=== PATIENT | male | born 1995 | race Caucasian/White ===

== ENCOUNTER 2021-11-06 22:32 | Inpatient (IN) | payer OTHER, SELFPAY ==
[2021-11-06 22:31] VITALS: BP 99/61; PULSE 128; RESP 20; TEMP 36.8; O2SAT 98; BMI 18.2
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
[2021-11-06 22:57] VITALS: BP 112/70; PULSE 123; RESP 24; O2SAT 100
[2021-11-06 23:02] LABS: Basophils # 0.1 10^3/uL (0.0-0.1); Basophils % 0.3 %; Hematocrit 36.8 % (42.0-52.0); Hemoglobin 12.9 g/dL (11.7-16.6); Lymphocytes # 1.4 10^3/uL (0.8-4.8); Lymphocytes % 3.1 %; Mean Corpuscular HGB Conc 35.1 g/dL (30.0-36.0); Mean Corpuscular Hemoglobin 31.2 pg (28.0-34.0); Mean Corpuscular Volume 89.1 fl (80-94); Mean Platelet Volume 10.7 fL (7.4-10.4); Monocytes # 4.1 10^3/uL (0.2-0.9); Monocytes % 9.2 %; Neutrophils # 37.78 10^3/uL (1.8-7.7); Neutrophils % 85.3 %; Nucleated Red Blood Cells % 0 %; Platelet Count 214 10^3/cmm (130-400); Red Blood Count 4.13 10^6/uL (4.1-5.3); Red Cell Distribution Width 11.9 % (12.1-15.1)
[2021-11-06 23:12] VITALS: BP 96/67; PULSE 119; RESP 20; O2SAT 100
[2021-11-06 23:14] LABS: White Blood Count 44.3 10^3/uL (4.0-10.0)
--- NOTE | 2021-11-06 23:21 | ECG_ITS ---
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 Measurements Intervals [place] Rate: 111 P: 85 AR: 132 QRS: 93 QRSD: 68 T: 82 QT: 297 QTc: 405 Interpretive Statements SINUS TACHYCARDIA POSSIBLE LEFT ATRIAL ENLARGEMENT [-0.1mV P-WAVE IN V1/V2] BORDERLINE RIGHT AXIS DEVIATION [QRS AXIS > 90] MINIMAL ST DEPRESSION [0.025+ mV ST DEPRESSION] ABNORMAL RHYTHM ECG No previous ECG available for comparison Electronically Signed On 11-07-2021 22:30:23 CDT by Michael Mccormick M.D. [id number]
[2021-11-06 23:30] VITALS: BP 108/77; PULSE 113; RESP 20; O2SAT 100
[2021-11-06] MEDS: ceFAZolin 1,000 MG in sodium chloride 0.9% (plus) 50 ML 100 MG IV (23:54)
[2021-11-06] MEDS: sodium chloride 0.9% 1,000 ML 999 ML IV (23:55)
[2021-11-07] VITALS (19 sets, daily range): BP systolic 101–157; BP diastolic 54–89; PULSE 0–105; RESP 10–19; TEMP 36.8–37.2; O2SAT 95–100
[2021-11-07 01:15] LABS: Alanine Aminotransferase 13 U/L (0-41); Alkaline Phosphatase 52 IU/L (40-130); Anion Gap 21.6 (5-19); Aspartate Amino Transferase 16 U/L (0-40); Blood Urea Nitrogen 25 mg/dL (6-20); Calcium 8.1 mg/dL (8.5-10.5); Carbon Dioxide 17 mmol/L (22-29); Chloride 105 mmol/L (98-107); Globulin 1.8 g/dL (1.3-4.6); Glomerular Filtration Rate 45.2 mL/min (90-130); Glucose 122 mg/dL (65-115); Osmolality Calculated 294 mOsm/kg (285-295); Potassium 4.6 mmol/L (3.5-5.1); Sodium 139 mmol/L (136-145); Total Bilirubin 0.8 mg/dL (0.15-1.2); Total Protein 5.8 g/dL (6.6-8.7)
[2021-11-07 01:16] LABS: Acetaminophen < 5.0 ug/mL (10-30); Salicylate < 0.3 mg/dL (3-10); Troponin(5th) Baseline 83 ng/L (0-15)
[2021-11-07 01:25] LABS: INR 1.64 (0.8-1.2)
[2021-11-07] MEDS: sodium chloride 0.9% 1,000 ML 999 ML IV ×2 (01:32→17:07)
--- NOTE | 2021-11-07 01:34 | ECG_ITS ---
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 Measurements Intervals [place] Rate: 96 P: 81 SD: 112 QRS: 91 QRSD: 78 T: 81 QT: 333 QTc: 423 Interpretive Statements SINUS RHYTHM WITH SHORT SD INTERVAL BORDERLINE RIGHT AXIS DEVIATION [QRS AXIS > 90] Compared to ECG 11/06/2021 23:54:49 Short SD interval now present Sinus tachycardia no longer present ST (T wave) deviation no longer present Electronically Signed On 11-07-2021 22:33:29 CDT by Michael Mccormick M.D. [id number]
[2021-11-07 01:39] LABS: Add Urine Culture? No; Add Urine Microscopic? YES; Bacteria Urine TRACE /hpf; Bilirubin Urine Neg (Negative); Blood Urine 2+ (Negative); Glucose Urine UA Norm (Normal); Hyaline Casts Urine 0-4 /lpf; Ketones Urine Negative (Negative); Leukocyte Esterase Urine Negative (Negative); Mucus Urine TRACE /hpf; Nitrate Urine Negative (Negative); Protein Urine Neg (Negative); RBC Urine 0-4 /hpf (0-2); Specific Gravity, Urine 1.025 (1.005-1.030); Squamous Epithelial Cell Urine 0-4 /hpf (0-5); Urine Appearance Clear (CLEAR); Urine Color Yellow (Yellow); Urobilinogen Urine Norm (Negative); WBC Urine 0-4 /hpf (0-5); pH Urine 5 (5-7)
[2021-11-07 01:43] LABS: Amphetamines Screen Urine Negative (Negative); Barbiturates Screen Urine Negative (Negative); Benzodiazepines Screen Urine Negative (Negative); Cocaine Screen Urine Negative (Negative); Opiate Screen Urine Negative (Negative); PCP Screen Urine Negative (Negative); THC Screen Urine Negative (Negative)
[2021-11-07 01:45] LABS: Creatine Phosphokinase 80 U/L (39-308)
[2021-11-07 03:11] LABS: Basophils % 0.2 %; Hematocrit 32.1 % (42.0-52.0); Hemoglobin 11.4 g/dL (11.7-16.6); Lymphocytes # 1.2 10^3/uL (0.8-4.8); Lymphocytes % 4.7 %; Mean Corpuscular HGB Conc 35.5 g/dL (30.0-36.0); Mean Corpuscular Hemoglobin 31.1 pg (28.0-34.0); Mean Corpuscular Volume 87.7 fl (80-94); Monocytes # 1.6 10^3/uL (0.2-0.9); Monocytes % 6.1 %; Neutrophils # 23.47 10^3/uL (1.8-7.7); Neutrophils % 88.4 %; Nucleated Red Blood Cells % 0 %; Platelet Count 138 10^3/cmm (130-400); Red Blood Count 3.66 10^6/uL (4.1-5.3); Red Cell Distribution Width 11.9 % (12.1-15.1); White Blood Count 26.5 10^3/uL (4.0-10.0)
[2021-11-07 03:57] LABS: Troponin 5 2HR 132.5 ng/L (0-15); Troponin 5 2HR Delta 49.5 ABS# (0-10)
--- NOTE | 2021-11-07 04:21 | P.HP_ITS ---
Providers/Chief Complaint Admitting Physician: Chuck Gandara MD Chief Complaint: SI/MULTIPLE STABS History of Present Illness Mahdi Lake is a 26 year old male with past medical history of pulmonary embolism on Eliquis Was brought in with chief complaint of active suicidal ideation with attempted self-injury, he tried to kill himself by attempting multiple slit injuries, there are multiple slit injuries to his ankles his left arm right arm, there was also concern for radial artery injury at , in the left but likely its venous injury. for which EMS gave 1 unit blood in route. Patient is having ongoing chest pain for the last 6 months after he was diagnosed with PE and since he was not able to take the chronic chest pain anymore he decided to end his life. Upon arrival in the ER: Pertinent imaging studies: X-ray chest EKG: Sinus tachycardia Pertinent labs done showed: WBC: 46T--> 26 , H&H:, PLT : 138 , serum sodium 139 serum potassium 4.6, serum bicarb 17 BUN 25 serum creatinine 1.8 , PT/INR:19/1.6 Troponin: 83-132 Urine tox: Negative, Review of Systems General: Reports: 10 or more systems reviewed and unremarkable except in HPI and below Narrative: 66-year-old currently not in acute distress being admitted for chest pain evaluation Const: Denies: fever(s), chills, body aches, change in appetite or diaphoresis Card: Denies: palpitations, edema, swelling of feet/ankles, dyspnea on exertion, orthopnea or leg pain with exertion Resp: Denies: dyspnea, productive cough, wheezing or pain on inspiration GI: Denies: abdominal pain, nausea, vomiting, diarrhea or constipation : Denies: flank pain or difficulty urinating Musc: Denies: back pain, extremity pain or extremity swelling Neuro: Denies: headache(s), difficulty walking or confusion Medications/Allergies Home Medications Medication Instructions Recorded Confirmed Last Taken Type rivaroxaban 20 mg tablet (Xarelto) 20 mg PO DAILY 11/07/21 11/07/21 Unknown History Allergies Allergy/AdvReac Type Severity Reaction Status Date / Time No Known Allergies Allergy Verified 11/06/21 23:46 Vitals/I&O/Wt Last Vital Signs Temp 98.2 F 11/06/21 22:31 Pulse 105 H 11/07/21 04:00 Resp 18 11/07/21 04:00 BP 125/89 11/07/21 04:00 Pulse Ox 100 11/07/21 04:00 11/06/21 11/06/21 11/07/21 14:59 22:59 06:59 Intake Total 2049 Balance 2049 Weight last 48 hrs Weight 68.039 kg Physical Exam Const: COMMON NORMALS: patient oriented x3 HENMT: COMMON NORMALS: normocephalic and atraumatic HEAD & SCALP: normocephalic and atraumatic EXTERNAL EAR: Yes external ears normal Eye: COMMON NORMALS: no scleral icterus GENERAL EYE: appearance normal, both eyes and all related structures Chest: COMMONS NORMALS: normal inspection of the chest and normal palpation of entire chest wall CHEST: Yes Symmetrical chest wall rise Resp: COMMON NORMALS: normal respiratory effort, No retractions, No use of accessory muscles and clear to auscultation bilaterally EFFORT & INSPECTION: Yes symmetric chest movement AUSCULTATION: clear to auscultation bilaterally Cardio: COMMON NORMALS: regular rate, regular rhythm, S1 normal heart sound present, S2 normal heart sound present, No gallops present (Cardio), No murmurs present (Cardio), No rub (Cardio) and Peripheral pulses 2+ throughout RATE: regular rate RHYTHM: regular rhythm HEART SOUNDS: S1 normal heart sound present and S2 normal heart sound present PERIPHERAL PULSES: Peripheral pulses 2+ throughout GI: COMMON NORMALS: Normal to inspection, nondistended, normoactive bowel sounds present, Soft to palpation, non-tender, No hepatosplenomegaly present and no masses AUSCULTATION: Yes normoactive bowel sounds PALPATION: Yes Soft to palpation and Yes No hepatosplenomegaly present RECTAL EXAM: Yes deferred Extremity: COMMON NORMALS: no clubbing, cyanosis or edema and no pedal edema Neuro: COMMON NORMALS: patient oriented x3 Data : 11/07/21 07:11 11/07/21 00:20 A&P Assessment and plan (1) NSTEMI (non-ST elevated myocardial infarction): Status: Acute (2) Leukocytosis: Status: Acute (3) Pulmonary embolism: Status: Acute (4) Acute kidney injury superimposed on CKD: Status: Acute (5) Suicidal behavior with attempted self-injury: Status: Acute Plan 26 year old male with past medical history of pulmonary embolism on Eliquis Was brought in with chief complaint of active suicidal ideation with attempted self-injury, he tried to kill himself by attempting multiple slit injuries, there are multiple slit injuries to his ankles his left arm right arm, there was also concern for radial artery injury at , in the left but likely its venous injury. for which EMS gave 1 unit blood in route. Patient is having ongoing chest pain for the last 6 months after he was diagnosed with PE. Assessment: NSTEMI Leukocytosis History of pulmonary embolism Active suicidal ideation RAJAT versus RAJAT on CKD Plan: Follow 2D echo follow lower extremity doppler vein 6 hours troponin Telemetry monitoring Monitor EKG Therapeutic Lovenox Follow blood culture Urine culture Lactic acid Procalcitonin We will hold off on antibiotics for now Continue IV hydration Monitor BMP Monitor intake output charting Avoid nephrotoxic's Patient has refused Imaging studies Psychiatry has been consulted by ER CODE STATUS: Full code DVT PPX : ON LOVENOX Attestations Medical Necessity Statement*: Patient is still in hospital for management of NSTEMI, attempted suicide. Anticipated length of stay greater than 2 midnights. Time Spent in Patient Care: Greater than 35 minutes (>than 50% of time spent in counselling and/or direct pt care on unit) . Coding Level of Care Code Acute Multi Operation Machine Operator for Chg Fwd Exam Comprehensive Diagnoses NSTEMI (non-ST elevated myocardial infarction) I21.4 Leukocytosis D72.829 Pulmonary embolism I26.99 Acute kidney injury superimposed on CKD N17.9; N18.9 Suicidal behavior with attempted self-injury T14.91XA
--- NOTE | 2021-11-07 04:38 | PC.NURSE ---
Per Dr. Gandara patient can go to med surg for med tele monitoring.
[2021-11-07 04:43] LABS: NT Pro B Type Natriuretic Pept 90 pg/mL (0-125)
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
[2021-11-07] MEDS: sodium chloride 0.9% 1,000 ML 125 ML IV ×3 (05:02→19:21)
[2021-11-07] MEDS: enoxaparin 80 mg/0.8 mL Syringe 70 MG SUBCUT ×2 (05:03→19:21)
[2021-11-07] MEDS: oxyCODONE-APAP 5-325 mg Tablet 1 TAB PO ×2 (05:08→22:02)
--- NOTE | 2021-11-07 05:34 | ECG_ITS ---
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 Measurements Intervals [place] Rate: 100 P: 83 VT: 115 QRS: 91 QRSD: 73 T: 89 QT: 324 QTc: 420 Interpretive Statements SINUS TACHYCARDIA WITH SHORT VT INTERVAL BORDERLINE RIGHT AXIS DEVIATION [QRS AXIS > 90] Compared to ECG 11/07/2021 01:35:03 Sinus rhythm no longer present Electronically Signed On 11-07-2021 22:33:25 CDT by Michael Mccormick M.D. [id number]
--- NOTE | 2021-11-07 07:06 | USCV_ITS ---
Mahdi Aleksandra Age: 26 Gender: M : 1995 Exam Date: 11/07/2021 09:12 Ordering Phys: Jared Granado MD Technologist: DANNI Exam Location: [facility] Indication: Chest pain, pulmonary embolism BP: 126 / 61 HR: 97 Rhythm: Sinus Technical Quality: Adequate MEASUREMENTS (Male / Female) Normal Values 2D ECHO LV Diastolic Diameter PLAX 4.3 cm 4.2 - 5.9 / 3.9 - 5.3 cm LV Systolic Diameter PLAX 2.6 cm IVS Diastolic Thickness 0.9 cm 0.6 - 1.0 / 0.6 - 0.9 cm IVS Systolic Thickness 1.3 cm LVPW Diastolic Thickness 1.1 cm 0.6 - 1.0 / 0.6 - 0.9 cm LVPW Systolic Thickness 1.4 cm LVOT Diameter 2.0 cm LV Ejection Fraction 2D Teich 69.6 % LV Ejection Fraction MOD 2C 76.5 % LV Ejection Fraction 2C AL 75.6 % LA Diameter 1.6 cm Aorta at Sinotubular Diameter 2.1 cm IVC Diameter 1.3 cm M-MODE Aortic Annulus Diameter 3.3 cm LA Ao Ratio MM 0.5 MV E Point Septal Separation 0.9 cm DOPPLER AV Peak Velocity 130.0 cm/s LVOT Peak Velocity 106.0 cm/s AV Area Cont Eq vti 2.9 cm squared AV Area Cont Eq pk 2.6 cm squared MV Area PHT 3.7 cm squared Mitral E to A Ratio 1.3 MV E' Velocity 75.0 cm/s Right Atrial Pressure 3.0 mmHg PV Peak Velocity 106.0 cm/s RV Acceleration Time 0.1 s RV Ejection Time 0.3 s RV AcT/ET 0.4 FINDINGS Left Ventricle Normal left ventricular size, systolic function and wall thickness, with no regional wall motion abnormalities. Left ventricular ejection fraction is estimated at 70 %. Right Ventricle Normal right ventricular size and systolic function. RVSP could not be calculated due to incomplete tricuspid regurgitation velocity profile. Right Atrium Normal right atrial size. Left Atrium Normal left atrial size. Mitral Valve Structurally normal mitral valve. No mitral valve stenosis. Trace mitral valve regurgitation. Aortic Valve Probably trileaflet aortic valve. No aortic valve stenosis. No aortic valve regurgitation. Tricuspid Valve Structurally normal tricuspid valve. No significant tricuspid valve regurgitation. Pulmonic Valve Structurally normal pulmonic valve. No pulmonary valve stenosis. Pericardium No pericardial effusion. Aorta Normal size aortic root and proximal ascending aorta. IVC Normal IVC dimension with >50% respiratory change of the inferior vena cava. CONCLUSIONS 1. Normal left ventricular size, systolic function and wall thickness, with no regional wall motion abnormalities. Left ventricular ejection fraction is estimated at 70 %. 2. No significant valve abnormalities. 3. There is no pericardial effusion. 4. There are no prior echocardiogram studies to compare. Joelle Weaver MD (Electronically Signed) Final Date: 07 November 2021 16:39 S
[2021-11-07 07:36] LABS: Basophils % 0.2 %; Hematocrit 28.4 % (42.0-52.0); Hemoglobin 10.1 g/dL (11.7-16.6); Lymphocytes # 2.7 10^3/uL (0.8-4.8); Lymphocytes % 11.3 %; Mean Corpuscular HGB Conc 35.6 g/dL (30.0-36.0); Mean Corpuscular Hemoglobin 31.2 pg (28.0-34.0); Mean Corpuscular Volume 87.7 fl (80-94); Monocytes # 2.3 10^3/uL (0.2-0.9); Monocytes % 9.5 %; Neutrophils # 18.97 10^3/uL (1.8-7.7); Neutrophils % 78.5 %; Nucleated Red Blood Cells % 0 %; Platelet Count 162 10^3/cmm (130-400); Red Blood Count 3.24 10^6/uL (4.1-5.3); Red Cell Distribution Width 11.8 % (12.1-15.1); White Blood Count 24.2 10^3/uL (4.0-10.0)
[2021-11-07 08:22] LABS: Troponin 5 6HR 143.7 ng/L (0-15); Troponin 5 6HR Delta 60.7 ng/L (0-12)
[2021-11-07 08:50] LABS: Lactate (Lactic Acid level) 1.4 mmol/L (0.5-2.2)
[2021-11-07 09:01] LABS: Ketone (Acetest) Serum Negative (Negative)
--- NOTE | 2021-11-07 10:30 | PC.CHAP ---
Pastoral Care Encounter/Spiritual Assessment Type of Contact [] Declined new accounts banking representative visit [] Patient/Family/Request visit [] Outpatient visit [] Follow-up visit [] Physician referral [] Code/Alert [x] Routine visit [] Staff referral [] Actively dying [] Patient sleeping [] Family support [] [] Out of room [] Palliative care [] [x] Receiving care in room [] Pre-surgical visit [] Trauma [] Long length of stay [] ICU visit [x] Other: with staff Relational/Emotional Strength [] Patient feels connected with others/family/visitors/staff [] Distress [] Loneliness/isolation [] Abandonment Spirituality of Patient [] Person of Marisol [] Attends Alevism of their Marisol [] Believes in Prayer [] Reads Bible or Worship materials [] There are Spiritual issues to be addressed Die Trimmer Interventions [] Prayer [] Active listening [] Non-anxious presence [] Spiritual/emotional support [] Crisis/trauma care [] Spiritual counseling [] Bereavement support [] Provided bereavement packet [] Provided Bible/devotional materials [] Provided toy/stuffed animal, coloring book to patient or family member [] Provided Communion [] Anointing/Campus [] Salvation [] Completed spiritual assessment [] Other: Impact on Illness or Injury [] Angry [] Fearful [] Anxious [] Often cries [] Exhaustion [] Unable to work [] Unable to attend baptist [] Unable to walk/stand [] Unable to read [] Unable to drive [] Unable to eat/drink [] Unable to sleep [] Unable to be with family [] Patient intubated [] Other: Summary with staff Time spent with patient 5 mins
--- NOTE | 2021-11-07 11:44 | P.MISC_ITS ---
Miscellaneous Note Purpose of Documentation: Mini progress note Note: Patient was admitted this morning. He was seen today. I had an extensive conversation with him. Patient states that he has had all the work-up done for his PE in the past and at the end he was told that it was unprovoked. He may have a slight deficiency of protein C however he was on Eliquis at the time he was tested. He says he will be going back to follow-up for further studies. He states he is from [place] and will be going back there for further work-up and testing. He is very adamantly refusing to have any imaging study done at our hospital. He believes he does not need them and since his body is in stress and that is why his cardiac enzymes were elevated and WBC count is high and that is also the reason for the rest of his lab abnormalities. He is also refusing to have further blood drawn to check for routine labs. He is only okay with having IV fluids and possibly vitamins in the IV fluids. He states his partner will be coming here shortly as she is driving over from [place] as we speak. At this time he is not interested in any further work-up. He believes that after his 96-hour hold he will be able to be discharged and go back to [place] and see his doctors there. He says he actively tried to commit suicide. He says he went into the [facility] and [place] used a razor blade for his multiple self- inflicted wounds on his lower extremities and upper extremities. He states the plan was to cut the artery and bleed out to however after bleeding for a little bit the blood flow stopped so he figured this was venous bleed. He states that he ended up coming into the hospital because if he did not off of this he was going to be miserable. His plan however is to . He also states that he lost over a liter of blood while his hike up back to his car. He was apparently driving from [place] to [place] and later when we asked he said no he was driving from [place] back to [place]. Unsure how he ended up in [place]. He does not live here. Patient did not offer any more information. 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 Regarding his chest pain he states it comes and goes and has been going on for the last 6 months and it was also there prior to him having the pulmonary embolism. He states it is not related to his breathing and sometimes is on the right side of his chest and sometimes on the left side of his chest. He has never had a cardiac work-up done before. I discussed with him the possibility of having a stress test. At this time however patient is refusing any blood work and would like to wait till tomorrow morning to have any more blood drawn. He also states that he will let us only check once more and then on the day of discharge to ensure things are heading in the right direction. Patient is not a smoker, BMI 18, no illicit drug use. Not diabetic. Patient is currently on a one-to-one sitter. #Suicide attempt, slit wrists #Elevated troponins most likely demand ischemia due to active blood loss, type II IN #High anion gap metabolic acidosis #Leukocytosis 24,000 #History of pulmonary embolism and DVT, unprovoked #IVC filter in place #RAJAT ? Patient will need evaluation by psychiatrist prior to discharge. He is a 96- hour hold. ? Continue one-to-one sitter ? Elevated troponins are most likely demand ischemia due to active blood loss. I will discuss with cardiology if stress test would be warranted in this case ? Most likely dehydration acute blood loss anemia caused his high anion gap metabolic acidosis. He did endorse not eating much for the last few days. Unfortunately he is not allowing for further blood draws ? Leukocytosis 44,000 on admission 24,000 this morning. Most likely due to stress response. I will recheck tomorrow morning as patient is refusing to have any more blood drawn today. ? He is currently on normal saline 125 cc/h. I will continue that and give him a normal saline bolus. ? I will give thiamine as well. Continue on regular diet ? Patient is refusing any kind of imaging studies whether it be x-ray or CT scan. Unsure if he has ingested anything as well and that might be the reason for refusal. Unable to give me a reason other than he thinks they are not warranted at this time. ? We will keep in observation for now. -Consult psychiatry. Will discuss with Dr. Obrien. Full code On 96-hour hold.
--- NOTE | 2021-11-07 13:40 | P.NPUHP_ITS ---
Providers/Chief Complaint Admitting Physician: Chuck Gandara MD Chief Complaint: SI/MULTIPLE STABS HPI NPU History of Present Illness Mahdi Lkae is a 26 year old male who presented to the emergency department w ith the following report: Chief Complaint: Psychiatric Symptoms Stated Complaint: SI/MULTIPLE STABS Time Seen by Provider: 11/06/21 22:46 Source: patient and EMS Mode of arrival: EMS Limitations: no limitations History of Present Illness: 26-year-old male that states that he had been suicidal today. He is found out in the [place] and tried to stab himself multiple times. He states that he was diagnosed with a PE 6 months ago has had chest pain since then he states he no longer want to deal with it. He has multiple lacerations to his ankles and his left arm and right arm. He had had a venous bleed to his left arm EMS gave him 1 unit of blood in route his vital signs here are normal currently. He denies any chest pain currently states he has been severely depressed though. Associated symptoms: Reports depression and suicidal ideation. He was admitted to the [facility] department for definitive treatment of those issues. A psychiatric consult was requested secondary to his significant psychiatric concerns. He presents today reporting he does not have any known allergies to medications and is not currently taking any psychiatric medications at the moment though he was on Remeron for anxiety with eating though he reports it wasn?t effective. 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 He presents to the emergency department due to self-injurious behaviors of cutting himself. He reports he was planning to commit suicide and had gone into the [place] to cut his arteries but realized he couldn?t find them and didn?t want to pass out in the [place] so he hiked up to wave down a car who called 911. He reports he has never been psychiatrically hospitalized and reports he has a psychiatrist in [place] who he sees virtually. He reports he has not been on any other medications for psychiatric reasons. He reports he smoked cigarettes over 7 years ago but denies currently, alcohol socially, marijuana socially, and denies any other illicit drug use. He has never been to drug and alcohol treatment and has never had drug and alcohol related charges. He endorses his mental health issues began presenting with his eating phobia where he would get anxiety around eating which comes and goes with no clear discernible cause. He reports feeling nausea and had stopped eating for a period of time but has had to start eating again which has increased the issue. He reports he has had issues with eating since he was younger but endorses that it wasn?t as much of a problem back then that he required help for it. He reports having chronic chest pains which he has now accepted as normal. He endorses having the ?normal amount? of suicidal thoughts but denies other suicide attempts besides his recent attempt. He reports that he began having acute pain around February/March of 2021 after which he was diagnosed with PE in April and has been adjusting to the chronic chest pain which he went to the ER multiple times for. He endorses the chest pain has been decreasing over the past couple of weeks but recently started spiking again. He endorses the pain worsening hit a threshold where he reports he thought ?this is the end? and went to the [place] so he ?would not be found easily?. He reports his mother had problems with eating due to having problems with physically eating and he would watch her be in pain and having issues with eating which he believes has affected him. Psychiatric History: As above. Substance Abuse History: As above Family History: He denies any mental health and addiction issues on either side of the family, and denies any known suicide attempts or completions. Developmental History: He denies any issues with or , was delayed in talking and had issues with completing his sentences until he was 4 years old, and denies any need for learning support, emotional support or special education classes. Psychosocial History: His parents were together when he was born until his father passed from a stroke when he was 16/17 years old. He has 9 siblings, some of whom are half siblings from his father. He described his childhood as always running and going around. He reports he came from a poor family and had to support himself financially from an early age. He denies any sexual, emotional or physical abuse. He denies any other traumatic events in his life. He moved to the when he was 21 years old from [facility] for school. He graduated from high school and college for software engineering as well as grad school for psychology where he got his PhD in neuroscience. He endorses being heterosexual with his longest relationship being around 4 years. He is currently , does not have children, has never been in the and denies a anglican belief system. 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 He currently lives in an apartment with his spouse and 2 roommates. Legal History: Denied. Medical History: He had a pulmonary embolism. Meds NPU Home Medications Medication Instructions Recorded Confirmed Last Taken Type rivaroxaban 20 mg tablet (Xarelto) 20 mg PO DAILY 11/07/21 11/07/21 Unknown History Allergies Allergy/AdvReac Type Severity Reaction Status Date / Time No Known Allergies Allergy Verified 11/06/21 23:46 Mental Status Exam MSE Comments: This is a slender [place] male with notable superficial lacerations over exposed skin in hospital scrubs with limited grooming and adequate eye contact. No abnormal movements except for psychomotor retardation. Mostly cooperative with exam in mild distress. Speech was decreased rate and volume. Mood described as great, affect is somewhat laissez-faire. Thought process, organized. Thought content: patient denies suicidal or homicidal ideation, no delusions reported or noted, and denies any auditory or visual hallucinations. Attention and concentration are intact and memory appeared reliable but none were formally tested. He is alert and oriented three times. Insight and judgment are fair. Impulse control is limited. Vitals/I&O/Wt Last Vital Signs Temp 98.2 F 11/07/21 11:56 Pulse 97 11/07/21 11:56 Resp 16 11/07/21 11:56 BP 116/55 11/07/21 11:56 Pulse Ox 98 11/07/21 11:56 11/06/21 11/07/21 11/07/21 22:59 06:59 14:59 Intake Total 2049 480 / 480 Output Total 1300 / 1300 Balance 2049 -820 / -820 Weight last 48 hrs Weight 68.039 kg Data NPU : 11/08/21 05:33 11/08/21 05:33 Micro: Microbiology 11/07/21 07:11 Blood Culture - Preliminary Blood SPECIMEN COLLECTED 11/07/21 07:11 Blood Culture - Preliminary Blood SPECIMEN COLLECTED Microbiology 11/07/21 07:11 Blood Blood Culture - Preliminary SPECIMEN COLLECTED 11/07/21 07:11 Blood Blood Culture - Preliminary SPECIMEN COLLECTED A&P Assessment and plan (1) Adjustment disorder with mixed disturbance of emotions and conduct: Status: Acute (2) Suicidal ideation: Status: Acute (3) Leukocytosis: Status: Acute (4) Multiple lacerations: Status: Acute (5) Elevated troponin: Status: Acute (6) Suicidal behavior with attempted self-injury: Status: Acute (7) Acute kidney injury superimposed on CKD: Status: Acute (8) Pulmonary embolism: Status: Acute (9) Leukocytosis: Status: Acute (10) NSTEMI (non-ST elevated myocardial infarction): Status: Acute (11) Depression: Status: Acute Plan This is a 26 year old [place] male with a recent history of pulmonary embolism which has resulted in chronic pain and mental health issues who presents after a recent suicide attempt endorsing he is doing well and is not currently exp eriencing suicidal ideation, wanting to be discharged. 1. Continue current medications. 2. Will get collateral information from his home medical treatment team to collaborate for the most effective treatment plan for the patient?s physical and mental health. 3. Continue one-to-one while in the hospital. 4. We will plan for transfer to neuropsychiatric unit after medically cleared. Patient will need psychiatric ongoing inpatient evaluation to evaluate and assess safety given clear suicide attempt. Attestations NPU Medical Necessity Statement*: N/A. Please see primary team note for medical necessity details. However given circumstances patient will need likely inpatient psychiatric assessment after medically cleared due to concerns for lethality Coding Level of Care Code Acute Rn Home Health for Melissa Vides Diagnoses Adjustment disorder with mixed disturbance of emotions and conduct F43.25 Suicidal ideation R45.851 Leukocytosis D72.829 Multiple lacerations T07.XXXA Elevated troponin R77.8 Suicidal behavior with attempted self-injury T14.91XA Acute kidney injury superimposed on CKD N17.9; N18.9 Pulmonary embolism I26.99 Leukocytosis D72.829 NSTEMI (non-ST elevated myocardial infarction) I21.4 Depression F32.A
--- NOTE | 2021-11-07 16:33 | PC.NURSE ---
Report called to BULMARO Hoffman in ICU. Patient to be transferred to ICU when a room becomes available.
--- NOTE | 2021-11-07 19:00 | PC.NURSE ---
Received patient from med surg via wheelchair, security and nurse at patients side. Patients reports that he is feeling much better and is not wanting to hurt himself at present time. Orders reviewed with patient and patient states that him and Dr. Lopez had discussed the CT or chest and the stress test order and he was not going to have it done while here because he has his normal doctors in [place] and has his routine follow up testing done there. No current discontinuation order noted will follow up with Dr. Lopez tomorrow. Sitter at bedside.
[2021-11-07 20:40] LABS: Glucose Point of Care 107 mg/dL (70-110)
[2021-11-08] VITALS (18 sets, daily range): BP systolic 88–128; BP diastolic 41–81; PULSE 67–110; RESP 12–22; TEMP 37.1; O2SAT 96–100; BMI 18.3
[2021-11-08] MEDS: sodium chloride 0.9% 1,000 ML 125 ML IV (02:33)
[2021-11-08 05:48] LABS: Basophils % 0.4 %; Eosinophils # 0.1 10^3/uL (0.0-0.8); Eosinophils % 0.7 %; Hematocrit 23.3 % (42.0-52.0); Hemoglobin 8.1 g/dL (11.7-16.6); Lymphocytes # 2.5 10^3/uL (0.8-4.8); Lymphocytes % 29.3 %; Mean Corpuscular HGB Conc 34.8 g/dL (30.0-36.0); Mean Corpuscular Hemoglobin 30.7 pg (28.0-34.0); Mean Corpuscular Volume 88.3 fl (80-94); Mean Platelet Volume 10.7 fL (7.4-10.4); Monocytes # 0.6 10^3/uL (0.2-0.9); Monocytes % 7.6 %; Neutrophils % 61.8 %; Nucleated Red Blood Cells % 0 %; Platelet Count 102 10^3/cmm (130-400); Red Blood Count 2.64 10^6/uL (4.1-5.3); Red Cell Distribution Width 11.9 % (12.1-15.1); White Blood Count 8.4 10^3/uL (4.0-10.0)
[2021-11-08 06:04] LABS: Alanine Aminotransferase 10 U/L (0-41); Albumin Level 3.1 g/dL (3.5-5.2); Alkaline Phosphatase 32 IU/L (40-130); Anion Gap 10.9 (5-19); Aspartate Amino Transferase 17 U/L (0-40); Blood Urea Nitrogen 9 mg/dL (6-20); Calcium 7.3 mg/dL (8.5-10.5); Carbon Dioxide 24 mmol/L (22-29); Chloride 113 mmol/L (98-107); Cholesterol 65 mg/dL (0-200); Globulin 1.6 g/dL (1.3-4.6); Glomerular Filtration Rate 115.1 mL/min (90-130); Glucose 77 mg/dL (65-115); HDL Cholesterol 21 mg/dL (60-100); LDL Cholesterol Calculated 30 mg/dL (50-129); LDL HDL Ratio 1.43 RATIO (0.00-3.22); Magnesium 1.7 mg/dL (1.7-2.3); Osmolality Calculated 295 mOsm/kg (285-295); Potassium 3.9 mmol/L (3.5-5.1); Sodium 144 mmol/L (136-145); Total Bilirubin 0.5 mg/dL (0.15-1.2); Total Protein 4.7 g/dL (6.6-8.7); Triglycerides 71 mg/dL (0-150)
[2021-11-08 06:10] LABS: Slide Review Slide Review Perform
--- NOTE | 2021-11-08 07:19 | SUR.PREOP ---
STRESS TEST Notified by nuclear medicine that patient is refusing the exam today. Test Cancelled per patient request. GLASS BEAD MAKER notified to report to ordering MD.
[2021-11-08] MEDS: enoxaparin 80 mg/0.8 mL Syringe 70 MG SUBCUT (10:05)
--- NOTE | 2021-11-08 10:20 | PC.NURSE ---
Telephone, Patient request to talk to spouse, was allowed to talk on the phone. No issues. Patient gave update on his care.
--- NOTE | 2021-11-08 10:33 | PC.CHAP ---
Pastoral Care Encounter/Spiritual Assessment Type of Contact [] Declined central office trouble shooter visit [] Patient/Family/Request visit [] Outpatient visit [] Follow-up visit [] Physician referral [] Code/Alert [x] Routine visit [] Staff referral [] Actively dying [] Patient sleeping [] Family support [] [] Out of room [] Palliative care [] [] Receiving care in room [] Pre-surgical visit [] Trauma [] Long length of stay [x] ICU visit [x] Other: sitter Relational/Emotional Strength [] Patient feels connected with others/family/visitors/staff [] Distress [] Loneliness/isolation [] Abandonment Spirituality of Patient [] Person of Marisol [] Attends Christianity of their Marisol [] Believes in Prayer [] Reads Bible or Mosque materials [] There are Spiritual issues to be addressed Professor Of Geology Interventions [] Prayer [x] Active listening [x] Non-anxious presence [] Spiritual/emotional support [] Crisis/trauma care [] Spiritual counseling [] Bereavement support [] Provided bereavement packet [] Provided Bible/devotional materials [] Provided toy/stuffed animal, coloring book to patient or family member [] Provided Communion [] Anointing/[place] [] Salvation [x] Completed spiritual assessment [] Other: Impact on Illness or Injury [] Angry [] Fearful [] Anxious [] Often cries [] Exhaustion [] Unable to work [] Unable to attend sabianism [] Unable to walk/stand [] Unable to read [] Unable to drive [] Unable to eat/drink [] Unable to sleep [] Unable to be with family [] Patient intubated [] Other: Summary spent time with patient discussing life in general... knowledge of difference beliefs... Time spent with patient 15 min
--- NOTE | 2021-11-08 14:44 | PC.NURSE ---
Patient visiting with in his room.
--- NOTE | 2021-11-08 14:47 | P.PN_ITS ---
Subjective Subjective: Seen this AM. Pt refused to go for stress test. He gave me his cardiolgists information Dr. Riley Pacheco who i discussed his care with. He will be faxing over pt records shortly. He states that patient presented to the hospital about 6 months ago with massive bilateral saddle pulmonary embolism with a right lower lobe pulmonary infarction. Patient received catheter directed thrombolysis and was subsequently placed on Xarelto. He also had hematological work-up done and there is mild protein C and protein S deficiency. His PE was deemed to be unprovoked by oncology and he was recommended indefinite lifelong anticoagulation. Patient also has an IVC filter because he does have chronic left-sided DVT. Filter was done in order to prevent an extensive DVT going into his lungs. Cardiology states that he is not worried about coronary artery disease in this patient as he has no risk factors. His troponin elevation is most likely secondary to demand ischemia from his acute blood loss. Patient does have a CT angiogram done recently in May which again showed chronic pulmonary embolism and right lower lobe with evidence of some infarction. His warehouse stocker believes his chronic chest pain is secondary to his PE. He says the patient was supposed to move to [place] and was not going to see Dr. Rothman again however he is happy to follow-up with the patient once he is back in [place]. Patient states he is not having any chest pain and it is very intermittent and its chronic pain. It is thought that the intensity has gone up but is the fact that the pain is chronic for him. He would not like to have any further testing done at this time. Vitals/I&O/Wt Last Vital Signs Temp 98.7 F 11/08/21 04:00 Pulse 100 11/08/21 12:00 Resp 14 11/08/21 12:00 BP 117/65 11/08/21 12:00 Pulse Ox 99 11/08/21 12:00 11/07/21 11/08/21 11/08/21 22:59 06:59 14:59 Intake Total 2288.333 / 3768.333 900 / 4668.333 1645.583 / 1645.583 Output Total 2400 / 3700 1675 / 5375 2800 / 2800 Balance -111.667 / 68.333 -775 / -706.667 -1154.417 / -1154.417 Weight last 48 hrs Weight 68.039 kg Physical Exam Narrative: General: Alert oriented x3, patient seen sitting up in bed appearing comfortable at this time, thin male, pleasant to talk to HEENT: Normocephalic, atraumatic, EOMI, breathing normally on room air Cardio: Slightly borderline tachycardic, normal S1-S2, no murmurs Respiratory: Good bilateral air entry, no wheezes no rhonchi appreciated GI: Abdomen soft, nontender, nondistended, bowel sounds + Extremities: no edema, no cyanosis, numerous areas of lacerations that are sutured up especially in radial and antecubital area. He has a lot of abrasions from being walking barefoot in the [place]. Data : 11/08/21 05:33 11/08/21 05:33 Micro: Microbiology 11/07/21 07:11 Blood Culture - Preliminary Blood NEGATIVE TO DATE 11/07/21 07:11 Blood Culture - Preliminary Blood NEGATIVE TO DATE A&P Assessment and plan (1) Depression: Status: Acute (2) Adjustment disorder with mixed disturbance of emotions and conduct: Status: Acute (3) Suicidal ideation: Status: Acute (4) Leukocytosis: Status: Acute (5) Multiple lacerations: Status: Acute (6) Elevated troponin: Status: Acute (7) Suicidal behavior with attempted self-injury: Status: Acute (8) Acute kidney injury superimposed on CKD: Status: Acute (9) Pulmonary embolism: Status: Acute (10) Leukocytosis: Status: Acute (11) NSTEMI (non-ST elevated myocardial infarction): Status: Acute Plan #Suicide attempt, slit wrists #Acute blood loss anemia from suicide attempt #Elevated troponins most likely demand ischemia due to active blood loss, type II OK #High anion gap metabolic acidosis?resolved #Leukocytosis 24,000 on admission?resolved #History of pulmonary embolism and DVT, unprovoked #IVC filter in place #RAJAT?resolved ? Patient will need evaluation by psychiatrist prior to discharge.? He is a 96- hour hold. ? Continue one-to-one sitter ? Elevated troponins are most likely demand ischemia due to active blood loss.? Patient's chest pain is most likely secondary to his chronic pulmonary embolism however cardiac cause cannot be ruled out. He was offered a stress test to which he refused. I have discussed with patient's warehouse stocker who will follow up with him after discharge when patient goes back to [place]. ? Labs have normalized. Stop IV fluids. ? Continue on regular diet. ? Patient is refusing any kind of imaging studies whether it be x-ray or CT scan.? Patient believes he does not need any testing at this time given his current situation. ? Dr. Obrien consulted on the patient. Once medically stable he will be transferred to n.p.o. -Patient's hemoglobin dropped to 8.1 this morning, platelets 106. I believe this is all from his acute blood loss due to his suicide attempt. Patient has agreed to have CBC checked every 12 hours. I will discuss with him if he will accept 1 unit of blood at this time. This may help with his symptomatic nature of his tachycardia. His hemoglobin from May was 13.1 as per warehouse stocker from [place] that I spoke to over the phone. Still awaiting records. Threshold to transfuse will be less than 7 however in my clinical judgment I believe patient would do well if we gave him a unit of blood at this time. I will discussed with patient. Full code On 96-hour hold. This will start once patient enters NPO. Attestations Medical Necessity Statement*: Expect 3 to 5-day hospital stay. Once medically stable will transfer to VISUAL MERCHANDISING COORDINATOR you. 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
--- NOTE | 2021-11-08 15:11 | W.PM.NPUPNS ---
Subjective NPU Subjective: Patient presents today reporting that he did get the visit with his today. He reports that he was very happy that she spent the time making sure he was okay and not being angry with him in relation to his suicide attempt. 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 We also discussed the plan and continued evaluation in relation to the 96-hour hold. We had a discussion about the possibility of initiation of medication in light of his anxiety pain continuing. We discussed the risk benefits and alternatives of considering Cymbalta and he understood agreed to continue a conversation regarding the medication. Otherwise he was pleased that the treatment team worked with his skin specialist back in [place] to make sure there was a more robust understanding of the situations and radiation exposures prior to this point and there was some procedures that he resisted secondary to concerns about exposure to radiation. Mental Status Exam MSE Comments: This is a slender Chinese male with notable superficial lacerations over exposed skin in hospital scrubs with limited grooming and adequate eye contact. No abnormal movements except for psychomotor retardation. Mostly cooperative with exam in no acute distress. Speech was decreased rate and volume. Mood described as pretty good considering, affect is somewhat laissez-faire, but being more engaged in the interview. Thought process, organized. Thought content: patient denies suicidal or homicidal ideation, no delusions reported or noted, and denies any auditory or visual hallucinations. Attention and concentration are intact and memory appeared reliable but none were formally tested. He is alert and oriented three times. Insight and judgment are fair. Impulse control is limited.? Vitals/I&O/Wt Last Vital Signs Temp 98.7 F 11/08/21 04:00 Pulse 100 11/08/21 12:00 Resp 14 11/08/21 12:00 BP 117/65 11/08/21 12:00 Pulse Ox 99 11/08/21 12:00 11/08/21 11/08/21 11/08/21 06:59 14:59 22:59 Intake Total 900 / 4668.333 1645.583 / 1645.583 Output Total 1675 / 5375 2800 / 2800 Balance -775 / -706.667 -1154.417 / -1154.417 Weight last 48 hrs Weight 68.039 kg Data NPU : 11/08/21 17:04 11/08/21 05:33 Micro: Microbiology 11/07/21 07:11 Blood Culture - Preliminary Blood NEGATIVE TO DATE 11/07/21 07:11 Blood Culture - Preliminary Blood NEGATIVE TO DATE Microbiology 11/07/21 07:11 Blood Blood Culture - Preliminary NEGATIVE TO DATE 11/07/21 07:11 Blood Blood Culture - Preliminary NEGATIVE TO DATE A&P Assessment and plan (1) Depression: Status: Acute (2) Anxiety: Status: Acute (3) Adjustment disorder with mixed disturbance of emotions and conduct: Status: Acute (4) Suicidal ideation: Status: Acute (5) Leukocytosis: Status: Acute (6) Multiple lacerations: Status: Acute (7) Elevated troponin: Status: Acute (8) Suicidal behavior with attempted self-injury: Status: Acute (9) Acute kidney injury superimposed on CKD: Status: Acute (10) Pulmonary embolism: Status: Acute (11) NSTEMI (non-ST elevated myocardial infarction): Status: Acute Plan This is a 26 year old Chinese male with a recent history of pulmonary embolism which has resulted in chronic pain and mental health issues who presents after a recent suicide attempt endorsing he is doing well and is not currently experiencing suicidal ideation, wanting to be discharged. 1. Continue current medication. 2. Continue every 15 minute checks for safety. 3. Encourage individual, group and milieu therapies. 4.? Transfer to neuropsychiatric unit after medically cleared.? Patient will need continued psychiatric inpatient evaluation to evaluate and assess safety given clear suicide attempt. Attestations NPU Medical Necessity Statement*: Inpatient hospitalization is medically necessary and the clinically appropriate intervention at this time. We will monitor medication to make changes as indicated. Likely length of stay 2-4 days. Coding Level of Care Code Acute Store Standards Associate for g Fwd Diagnoses Depression F32.A Anxiety F41.9 Adjustment disorder with mixed disturbance of emotions and conduct F43.25 Suicidal ideation R45.851 Leukocytosis D72.829 Multiple lacerations T07.XXXA Elevated troponin R77.8 Suicidal behavior with attempted self-injury T14.91XA Acute kidney injury superimposed on CKD N17.9; N18.9 Pulmonary embolism I26.99 NSTEMI (non-ST elevated myocardial infarction) I21.4
[2021-11-08 17:13] LABS: Basophils % 0.5 %; Eosinophils # 0.1 10^3/uL (0.0-0.8); Eosinophils % 0.7 %; Hematocrit 26.1 % (42.0-52.0); Hemoglobin 9.4 g/dL (11.7-16.6); Lymphocytes # 2.4 10^3/uL (0.8-4.8); Lymphocytes % 29.1 %; Mean Corpuscular Hemoglobin 31.3 pg (28.0-34.0); Mean Platelet Volume 10.9 fL (7.4-10.4); Monocytes # 0.7 10^3/uL (0.2-0.9); Monocytes % 8.7 %; Neutrophils % 60.8 %; Nucleated Red Blood Cells % 0 %; Platelet Count 126 10^3/cmm (130-400); Red Cell Distribution Width 11.7 % (12.1-15.1); White Blood Count 8.4 10^3/uL (4.0-10.0)
--- NOTE | 2021-11-08 17:23 | PC.NURSE ---
Lab work (Hgb 9.4) discussed with patient. Patient to be transferred to NPU. Dr. Lopez is also aware.
--- NOTE | 2021-11-08 17:36 | PC.NURSE ---
Dr. Obrien in room discussing care with patient.
--- NOTE | 2021-11-08 18:38 | PC.NURSE ---
Report called to NPU. They will accept patient after shift change at 1930.
[2021-11-09 06:00] VITALS: BP 107/61; PULSE 90; RESP 16; O2SAT 100
[2021-11-09 14:00] VITALS: BP 103/66; PULSE 85; RESP 15; TEMP 36.9; O2SAT 99
--- NOTE | 2021-11-09 14:46 | P.NPUPN_ITS ---
Subjective NPU Subjective: Patient presents today continuing to have positive movement and is thoughts and diminished consideration of any self harming thinking. We had a significant discussion about the risks, benefits and alternatives of a trial of Cymbalta and he understood agreed to proceed at this documented in this note. We will do a little additional investigation into the toe prescribing of Cymbalta with Xarelto to consider whether there is any credible increased risk of disruption of his already tenuous coagulation status. Mental Status Exam MSE Comments: This is a slender [place] male with notable superficial lacerations over exposed skin in hospital scrubs with limited grooming and adequate eye contact. No abnormal movements except for psychomotor retardation. Mostly cooperative with exam in no acute distress. Speech was more normal rate and volume with a strong Danish accent Mood described as pretty good, affect congruent.? Thought process, organized. Thought content: patient denies suicidal or homicidal ideation, no delusions reported or noted, and denies any auditory or visual hallucinations. Attention and concentration are intact and memory appeared reliable but none were formally tested. He is alert and oriented three times. Insight and judgment are fair. Impulse control is limited.? Vitals/I&O/Wt Last Vital Signs Temp 98.5 F 11/09/21 14:00 Pulse 85 11/09/21 14:00 Resp 15 11/09/21 14:00 BP 103/66 11/09/21 14:00 Pulse Ox 99 11/09/21 14:00 Weight last 48 hrs Weight 68.181 kg Data NPU : 11/08/21 17:04 11/08/21 05:33 A&P Assessment and plan (1) Anxiety: Status: Acute (2) Depression: Status: Acute (3) Adjustment disorder with mixed disturbance of emotions and conduct: Status: Acute (4) Suicidal ideation: Status: Acute (5) Leukocytosis: Status: Acute (6) Multiple lacerations: Status: Acute (7) Elevated troponin: Status: Acute (8) Suicidal behavior with attempted self-injury: Status: Acute (9) Acute kidney injury superimposed on CKD: Status: Acute (10) Pulmonary embolism: Status: Acute (11) NSTEMI (non-ST elevated myocardial infarction): Status: Acute Plan This is a 26 year old [place] male with a recent history of pulmonary embolism which has resulted in chronic pain and mental health issues who presents after a recent suicide attempt endorsing he is doing well and is not currently experiencing suicidal ideation, wanting to be discharged. 1.? Continue current medication. Initiate Cymbalta 30 mg p.o. every morning. We will identify if Cymbalta/ Xarelto makes has any credible risk for his clotting status 2.? Continue every 15 minute checks for safety. 3.? Encourage individual, group and milieu therapies.. Involuntary Hold Information 96 Hour Hold: 96 Hour Involuntary Admission: Yes 96 Hour Hold Ending Date: 11/14/21 96 Hour Hold Ending Time: 21:00 Attestations NPU Medical Necessity Statement*: Inpatient hospitalization is medically necessary and the clinically appropriate intervention at this time. We will monitor medication to make changes as indicated.? Likely length of stay 1-3 days. Coding Level of Care Code Acute Supervisor [employer] Sheets for Chg Fwd Diagnoses Anxiety F41.9 Depression F32.A Adjustment disorder with mixed disturbance of emotions and conduct F43.25 Suicidal ideation R45.851 Leukocytosis D72.829 Multiple lacerations T07.XXXA Elevated troponin R77.8 Suicidal behavior with attempted self-injury T14.91XA Acute kidney injury superimposed on CKD N17.9; N18.9 Pulmonary embolism I26.99 NSTEMI (non-ST elevated myocardial infarction) I21.4
--- NOTE | 2021-11-09 14:55 | PC.NURSE ---
Pt's brought in his home medication of Xarelto to be administered to pt, sent to pharmacy to be approved.
--- NOTE | 2021-11-09 16:52 | PC.NURSE ---
Patient requested male nurse to do a focused skin assessment for ticks. Patient also asked for his to be able to remove ticks off his body. Patient is requesting antibiotics due to having more than 10 ticks on his body and having them for more than 3 days. Physician notified. ER male nurse currently doing assessment.
[2021-11-09] MEDS: duloxetine 30 mg Capsule PO (17:29)
[2021-11-09] MEDS: doxycycline 100 mg Tablet PO (17:46)
[2021-11-09 20:28] VITALS: BP 105/58; PULSE 85; RESP 15; TEMP 36.9; O2SAT 97
[2021-11-10 06:00] VITALS: BP 105/60; PULSE 95; RESP 17; TEMP 36.8; O2SAT 99
[2021-11-10] MEDS: doxycycline 100 mg Tablet PO ×2 (08:17→15:07)
[2021-11-10] MEDS: duloxetine 30 mg Capsule PO (08:17)
--- NOTE | 2021-11-10 08:41 | PC.NURSE ---
Patient educated on labs ordered by physician. Patient agrees for lab collection.
[2021-11-10 09:11] LABS: Basophils % 0.4 %; Eosinophils # 0.1 10^3/uL (0.0-0.8); Eosinophils % 2.2 %; Hematocrit 26.9 % (42.0-52.0); Hemoglobin 9.6 g/dL (11.7-16.6); Lymphocytes # 1.3 10^3/uL (0.8-4.8); Lymphocytes % 28.2 %; Mean Corpuscular HGB Conc 35.7 g/dL (30.0-36.0); Mean Corpuscular Hemoglobin 31.2 pg (28.0-34.0); Mean Corpuscular Volume 87.3 fl (80-94); Mean Platelet Volume 11.1 fL (7.4-10.4); Monocytes # 0.4 10^3/uL (0.2-0.9); Monocytes % 8.5 %; Neutrophils # 2.75 10^3/uL (1.8-7.7); Neutrophils % 60.3 %; Nucleated Red Blood Cells % 0 %; Platelet Count 147 10^3/cmm (130-400); Red Blood Count 3.08 10^6/uL (4.1-5.3); Red Cell Distribution Width 11.5 % (12.1-15.1); White Blood Count 4.6 10^3/uL (4.0-10.0)
[2021-11-10 09:20] LABS: Anion Gap 11.8 (5-19); Blood Urea Nitrogen 13 mg/dL (6-20); Calcium 9.2 mg/dL (8.5-10.5); Carbon Dioxide 29 mmol/L (22-29); Chloride 104 mmol/L (98-107); Glomerular Filtration Rate 115.1 mL/min (90-130); Glucose 97 mg/dL (65-115); Osmolality Calculated 292 mOsm/kg (285-295); Potassium 3.8 mmol/L (3.5-5.1); Sodium 141 mmol/L (136-145)
[2021-11-10 14:00] VITALS: BP 114/68; PULSE 95; RESP 20; TEMP 36.9; O2SAT 99
--- NOTE | 2021-11-10 14:02 | P.NPUDS_ITS ---
Diagnoses at Discharge Discharge Diagnosis (1) Anxiety: Status: Acute (2) Depression: Status: Acute (3) Adjustment disorder with mixed disturbance of emotions and conduct: Status: Acute (4) Suicidal ideation: Status: Resolved (5) Leukocytosis: Status: Resolved (6) Multiple lacerations: Status: Acute (7) Elevated troponin: Status: Acute (8) Suicidal behavior with attempted self-injury: Status: Acute (9) Acute kidney injury superimposed on CKD: Status: Acute (10) Pulmonary embolism: Status: Acute (11) NSTEMI (non-ST elevated myocardial infarction): Status: Acute Reason for Visit Reason for Visit: SI/MULTIPLE STABS Brief History: History of Present Illness Mahdi Lake is a 26 year old male who presented to the emergency department with the following report: Chief Complaint: Psychiatric Symptoms Stated Complaint: SI/MULTIPLE STABS Time Seen by Provider: 11/06/21 22:46 Source: patient and EMS Mode of arrival: EMS Limitations: no limitations History of Present Illness:?? 26-year-old male that states that he had been suicidal today.? He is found out in the [place] and tried to stab himself multiple times.? He states that he was diagnosed with a PE 6 months ago has had chest pain since then he states he no longer want to deal with it.? He has multiple lacerations to his ankles and his left arm and right arm.? He had had a venous bleed to his left arm EMS gave him 1 unit of blood in route his vital signs here are normal currently.? He denies any chest pain currently states he has been severely depressed though. Associated symptoms: Reports depression and suicidal ideation. He was admitted to the [facility] department for definitive treatment of those issues.? A psychiatric consult was requested secondary to his significant psychiatric concerns. He presents today reporting he does not have any known allergies to medications and is not currently taking any psychiatric medications at the moment though he was on Remeron for anxiety with eating though he reports it wasn?t effective. 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 He presents to the emergency department due to self-injurious behaviors of cutting himself. He reports he was planning to commit suicide and had gone into the [facility] to cut his arteries but realized he couldn?t find them and didn?t want to pass out in the [place] so he hiked up to wave down a car who called 911. He reports he has never been psychiatrically hospitalized? and reports he has a psychiatrist in [place] who he sees virtually. He reports he has not been on any other medications for psychiatric reasons. He reports he smoked cigarettes over 7 years ago but denies currently, alcohol socially, marijuana socially, and denies any other illicit drug use. He has never been to drug and alcohol treatment and has never had drug and alcohol related charges. He endorses his mental health issues began presenting with his eating phobia where he would get anxiety around eating which comes and goes with no clear discernible cause. He reports feeling nausea and had stopped eating for a period of time but has had to start eating again which has increased the issue. He reports he has had issues with eating since he was younger but endorses that it wasn?t as much of a problem back then that he required help for it. He reports having chronic chest pains which he has now accepted as normal. He endorses having the ?normal amount? of suicidal thoughts but denies other suicide attempts besides his recent attempt. He reports that he began having acute pain around February/March of 2021 after which he was diagnosed with PE in April and has been adjusting to the chronic chest pain which he went to the ER multiple times for. He endorses the chest pain has been decreasing over the past couple of weeks but recently started spiking again. He endorses the pain worsening hit a threshold where he reports he thought ?this is the end? and went to the [facility] so he ?would not be found easily?. He reports his mother had problems with eating due to having problems with physically eating and he would watch her be in pain and having issues with eating which he believes has affected him. Psychiatric History: As above. Substance Abuse History: As above Family History: He denies any mental health and addiction issues on either side of the family, and denies any known suicide attempts or completions. Developmental History: He denies any issues with or , was delayed in talking and had issues with completing his sentences until he was 4 years old, and denies any need for learning support, emotional support or special education classes. Psychosocial History: His parents were together when he was born until his father passed from a stroke when he was 16/17 years old. He has 9 siblings, some of whom are half siblings from his father. He described his childhood as always running and going around. He reports he came from a poor family and had to support himself financially from an early age. He denies any sexual, emotional or physical abuse. He denies any other traumatic events in his life. He moved to the when he was 21 years old from [facility] for school. He graduated from high school and college for software engineering as well as grad school for psychology where he got his PhD in neuroscience. He endorses being heterosexual with his longest relationship being around 4 years. He is currently , does not have children, has never been in the and denies a hinduism belief system. 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 He currently lives in an apartment with his spouse and 2 roommates. Legal History: Denied. Medical History: He had a pulmonary embolism. Hospital Course Hospital Course He slowly acclimated to the individual, group, and milieu therapy. He was transferred from the ICU to the unit after he was medically cleared. He eventually agreed to a trial of Cymbalta after we identified that it would be okay to take with Xarelto. We collaborated with his home team who will continuous pickling line pickler his treatment. He had marked improvement during the stay. He was able to contract for safety, outside of the hospital prior to discharge. During the hospitalization, patient had routine laboratory studies which were within normal limits except for few outliers. Additionally there was a general medical evaluation which was also within normal limits and revealed no new acute processes. Discharge Summary: At the time of discharge, he denied psychosis or lethality. Mood and anxiety were well managed. Patient endorsed a plan to avoid all drugs of abuse and follow-up with the aftercare recommendations of the treatment team. Patient was evaluated and deemed to be absent credible lethality, and had achieved the maximum benefit from an inpatient hospitalization, so was discharged. Involuntary Hold Information 96 Hour Hold: 96 Hour Involuntary Admission: Yes 96 Hour Hold Ending Date: 11/14/21 96 Hour Hold Ending Time: 21:00 Mental Status Exam MSE Comments: This is a slender Bangladeshi male with notable superficial lacerations over exposed skin in hospital scrubs with limited grooming and adequate eye contact. No abnormal movements except for psychomotor retardation. Mostly cooperative with exam in no acute distress. Speech was more normal rate and volume with a strong Bangl[place] accent. Mood described as good, affect congruent.? Thought process, organized. Thought content: patient denies suicidal or homicidal ideation, no delusions reported or noted, and denies any auditory or visual hallucinations. Attention and concentration are intact and memory appeared reliable but none were formally tested. He is alert and oriented three times. Insight and judgment are fair. Impulse control is limited.? Discharge Data Studies Completed and Pending: Completed Studies During Hospitalization Category Date Time Status CV. echo complete * [id number] Routine Ultrasound 11/07/21 07:06 Completed US venous duplex lower extremity bi lat [CV venous Ultrasound 11/07/21 04:55 [place] [id number]] Routine Pending at discharge Category Date Time Status Sestamibi Stress Test Request Amena ne Exams 11/07/21 17:21 Stop Req Blood Culture Rou [facility] Lab 11/07/21 07:11 Results Tick (and Other A rthropods) ID Rout ine Lab 11/09/21 18:30 Received Tick Panel Routin e Lab 11/10/21 08:43 Received Radiology Impressions Venous Duplex 11/07/21 04:55 IMPRESSION: 1. Suspect some chronic thrombus throughout most of the left superficial femoral and popliteal veins, and also in the left profunda femoral vein. See above details/discussion. 2. No evidence of acute right lower extremity deep venous thrombosis. Laboratory Results WBC 4.6 10^3/uL (4.0- 10.0) 11/10/21 08:43 RBC 3.08 10^6/uL (4.1 -5.3) L 11/10/21 08:43 Hgb 9.6 g/dL (11.7-16 .6) L 11/10/21 08:43 Hct 26.9 % (42.0-52.0 ) L 11/10/21 08:43 MCV 87.3 fl (80-94) 11/10/21 08:43 MCH 31.2 pg (28.0-34. 0) 11/10/21 08:43 MCHC 35.7 g/dL (30.0-3 6.0) 11/10/21 08:43 RDW 11.5 % (12.1-15.1 ) L 11/10/21 08:43 Plt Count 147 10^3/cmm (130 -400) 11/10/21 08:43 MPV 11.1 fL (7.4-10.4 ) H 11/10/21 08:43 Neut % (Auto) 60.3 % 11/10/21 08:43 Lymph % (Auto) 28.2 % 11/10/21 08:43 [place] % (Auto) 8.5 % 11/10/21 08:43 Eos % (Auto) 2.2 % 11/10/21 08:43 Baso % (Auto) 0.4 % 11/10/21 08:43 Neut # (Auto) 2.75 10^3/uL (1.8 -7.7) 11/10/21 08:43 Lymph # (Auto) 1.3 10^3/uL (0.8- 4.8) 11/10/21 08:43 [place] # (Auto) 0.4 10^3/uL (0.2- 0.9) 11/10/21 08:43 Eos # (Auto) 0.1 10^3/uL (0.0- 0.8) 11/10/21 08:43 Baso # (Auto) 0.0 10^3/uL (0.0- 0.1) 11/10/21 08:43 Nucleated RBC % (a uto) 0 % 11/10/21 08:43 Nucleated RBCs # 0.0 /100WBC 11/10/21 08:43 PT 19.70 SECONDS (12 .1-14.9) H 11/07/21 00:20 INR 1.64 (0.8-1.2) H 11/07/21 00:20 Sodium 141 mmol/L (136-1 45) 11/10/21 08:43 Potassium 3.8 mmol/L (3.5-5 .1) 11/10/21 08:43 Chloride 104 mmol/L (98-10 7) 11/10/21 08:43 Carbon Dioxide 29 mmol/L (22-29) 11/10/21 08:43 Anion Gap 11.8 (5-19) 11/10/21 08:43 BUN 13 mg/dL (6-20) 11/10/21 08:43 Creatinine 0.8 mg/dL (0.7-1. 2) 11/10/21 08:43 GFR Calculation 115.1 mL/min (90- 130) 11/10/21 08:43 Glucose 97 mg/dL (65-115) 11/10/21 08:43 POC Glucose 107 mg/dL (70-110 ) 11/07/21 20:24 Calculated Osmolal ity 292 mOsm/kg (285- 295) 11/10/21 08:43 Lactate 1.4 mmol/L (0.5-2 .2) 11/07/21 07:11 Calcium 9.2 mg/dL (8.5-10 .5) 11/10/21 08:43 Magnesium 1.7 mg/dL (1.7-2. 3) 11/08/21 05:33 Total Bilirubin 0.5 mg/dL (0.15-1 .2) 11/08/21 05:33 AST 17 U/L (0-40) 11/08/21 05:33 ALT 10 U/L (0-41) 11/08/21 05:33 Alkaline Phosphata se 32 IU/L (40-130) L 11/08/21 05:33 Creatine Kinase 80 U/L (39-308) 11/07/21 00:20 Troponin T Baselin e 83 ng/L (0-15) H 11/07/21 00:20 Troponin T 120 Min floresita 132.5 ng/L (0-15) H 11/07/21 03:20 Delta Troponin T 49.5 ABS# (0-10) H* 11/07/21 03:20 Troponin T Hi Sens 6Hr 143.7 ng/L (0-15) H 11/07/21 07:11 Troponin T Hi Sens 6Hr Delta 60.7 ng/L (0-12) H* 11/07/21 07:11 NT-Pro-B Natriuret Pep 90 pg/mL (0-125) 11/07/21 00:20 Total Protein 4.7 g/dL (6.6-8.7 ) L 11/08/21 05:33 Albumin 3.1 g/dL (3.5-5.2 ) L 11/08/21 05:33 Globulin 1.6 g/dL (1.3-4.6 ) 11/08/21 05:33 Triglycerides 71 mg/dL (0-150) 11/08/21 05:33 Cholesterol 65 mg/dL (0-200) 11/08/21 05:33 LDL Cholesterol, C alc 30 mg/dL (50-129) L 11/08/21 05:33 HDL Cholesterol 21 mg/dL (60-100) L 11/08/21 05:33 LDL/HDL Ratio 1.43 RATIO (0.00- 3.22) 11/08/21 05:33 Cholesterol/HDL Ra lorena 3.10 mg/dL (1.0-5 .00) 11/08/21 05:33 Urine Color Yellow (Yellow) 11/07/21 01:25 Urine Appearance Clear (CLEAR) 11/07/21 01:25 Urine pH 5 (5-7) 11/07/21 01:25 Ur Specific Gravit y 1.025 (1.005-1.0 30) 11/07/21 01:25 Urine Protein Neg (Negative) 11/07/21 01:25 Urine Glucose (UA) Norm (Normal) 11/07/21 01:25 Urine Ketones Negative (Negati ve) 11/07/21 01:25 Urine Blood 2+ (Negative) H 11/07/21 01:25 Urine Nitrate Negative (Negati ve) 11/07/21 01:25 Urine Bilirubin Neg (Negative) 11/07/21 01:25 Urine Urobilinogen Norm mg/dL (Negat naldo) 11/07/21 01:25 Ur Leukocyte Jayla ase Negative (Negati ve) 11/07/21 01:25 Urine RBC 0-4 /hpf (0-2) H 11/07/21 01:25 Urine WBC 0-4 /hpf (0-5) H 11/07/21 01:25 Ur Squamous Epith Cells 0-4 /hpf (0-5) H 11/07/21 01:25 Amorphous Sediment Not Reportable 11/07/21 01:25 Urine Bacteria Trace /hpf (NONE) 11/07/21 01:25 Hyaline Casts 0-4 /lpf H 11/07/21 01:25 Urine Mucus Trace /hpf 11/07/21 01:25 CSF Lyme IgG Ab 45 kDa Cancelled 11/09/21 07:11 Salicylates < 0.3 mg/dL (3-10 ) L 11/07/21 00:20 Urine Opiates Scre en Negative ng/mL (N egative) 11/07/21 01:25 Acetaminophen < 5.0 ug/mL (10-3 0) L 11/07/21 00:20 Ur Barbiturates Sc reen Negative ng/mL (N egative) 11/07/21 01:25 Ur Phencyclidine S crn Negative ng/mL (N egative) 11/07/21 01:25 Ur Amphetamines Sc reen Negative ng/mL (N egative) 11/07/21 01:25 U Benzodiazepines Scrn Negative ng/mL (N egative) 11/07/21 01:25 Urine Cocaine Scre en Negative ng/mL (N egative) 11/07/21 01:25 U Marijuana (THC) Screen Negative ng/mL (N egative) 11/07/21 01:25 Serum Ketones Negative (Negati ve) 11/07/21 07:11 Lyme Ab (Western B lot) Cancelled 11/09/21 07:11 Lyme IgG 18 kDa Ba nd Cancelled 11/09/21 07:11 Lyme IgG 23 kDa Ba nd Cancelled 11/09/21 07:11 Lyme IgG 28 kDa Ba nd Cancelled 11/09/21 07:11 Lyme IgG 30 kDa Ba nd Cancelled 11/09/21 07:11 Lyme IgG 39 kDa Ba nd Cancelled 11/09/21 07:11 Lyme IgG 41 kDa Ba nd Cancelled 11/09/21 07:11 Lyme IgG 58 kDa Ba nd Cancelled 11/09/21 07:11 Lyme IgG 66 kDa Ba nd Cancelled 11/09/21 07:11 Lyme IgG 93 kDa Ba nd Cancelled 11/09/21 07:11 Lyme IgM Ab (WB) Cancelled 11/09/21 07:11 Lyme Disease IgG A b (IFA) Cancelled 11/09/21 07:11 Lyme IgG Ab (Immbl ot) Cancelled 11/09/21 07:11 Lyme IgM 23 kDa Ba nd Cancelled 11/09/21 07:11 Lyme IgM 39 kDa Ba nd Cancelled 11/09/21 07:11 Lyme IgM 41 kDa Ba nd Cancelled 11/09/21 07:11 E. chaffeensis IgG Ab Cancelled 11/09/21 07:11 E. chaffeensis IgM Ab Cancelled 11/09/21 07:11 E. chaffeensis Int erp Cancelled 11/09/21 07:11 E. chaffeensis Com ment Cancelled 11/09/21 07:11 Rickettsia IgG Tit er Cancelled 11/09/21 07:11 Rickettsia IgG Ab Cancelled 11/09/21 07:11 Rickettsia IgM Tit er Cancelled 11/09/21 07:11 Rickettsia IgM Ab Cancelled 11/09/21 07:11 Blood Type A Positive 11/06/21 22:46 Rho(D) Type Positive 11/06/21 22:46 Antibody Screen Negative 11/06/21 22:46 Vitals: Last Vital Signs Temp 98.2 F 11/10/21 06:00 Pulse 95 11/10/21 06:00 Resp 17 11/10/21 06:00 BP 105/60 11/10/21 06:00 Pulse Ox 99 11/10/21 06:00 Discharge Plan Discharge Patient Disposition: Home Condition: Stable Prescriptions: New doxycycline monohydrate 100 mg Tablet 100 mg PO BID 9 Days Qty: 18 0RF duloxetine 30 mg Capsule,Delayed Release(Dr/Ec) 30 mg PO DAILY 30 Days Qty: 30 1RF Continued Xarelto 20 mg tablet 20 mg PO DAILY 0RF Discharge Orders: Discharge Order (Routine); Ordered 11/10/21 Ordered By: Ricardo Obrien Discharge Diet: Regular Discharge Activity: Resume usual activity Patient Instructions: Tick Bites, Doxycycline (By mouth), Duloxetine (By mouth), Depression (DC), Anxiety (DC), Suicide Prevention (DC), Opioid Safety Activity Restrictions/Additional Instructions: Please follow up with your primary care physician within three days from today. Keep wounds on body clean and dry. Watch for signs of infection, fever, redness, foul odor, or discharge from wounds and notify physician of any changes. Discharge Attestations NPU Time Spent in Discharge Care*: greater than 30 min Specific Discharge Activities: Specific discharge activities: educating patient, discussing with pcp/other providers, discussing with telephonic nurse case manager/social workers/dc planners, documenting/other paperwork and evaluating patient/reviewing data Coding Level of Care Code Acute Chg FW DC note Diagnoses Anxiety F41.9 Depression F32.A Adjustment disorder with mixed disturbance of emotions and conduct F43.25 Suicidal ideation R45.851 Leukocytosis D72.829 Multiple lacerations T07.XXXA Elevated troponin R77.8 Suicidal behavior with attempted self-injury T14.91XA Acute kidney injury superimposed on CKD N17.9; N18.9 Pulmonary embolism I26.99 NSTEMI (non-ST elevated myocardial infarction) I21.4
--- NOTE | 2021-11-10 14:13 | PC.NURSE ---
Verified patient pharmacy and current working phone number with patient. Instructed patient if labs come back from tick panel abnormal we will contact him at this number and fax this information to his physician. Patient verbalized requested information was correct.
[2021-11-10 14:14] VITALS: BP 105/60; PULSE 95; RESP 17; TEMP 36.8; O2SAT 99
[2021-11-11 14:04] LABS: Lyme AB Screen <0.90 index
[2021-11-14 18:28] LABS: RMSF IGG NOT DETECTED; RMSF IGM NOT DETECTED
--- NOTE | 2021-11-15 09:45 | PC.NURSE ---
Left voicemail for patient to return call.
[2021-11-19 22:03] LABS: E. Chaffeensis AB IGG <1:64; E. Chaffeensis AB IGM <1:20
== END 2021-11-10 15:10 | disposition home or self-care (01) | DRG 605 ==
LOC: ER 11-07 01:08 → ICU 11-07 04:16 → MEDSURG 11-07 04:39 → ICU 11-07 18:39 → NP 11-08 21:11
PROVIDERS: Internal Medicine; Admitting Provider Internal Medicine; Emergency Provider Emergency Medicine; Visit Provider Psychiatry & Neurology Psychiatry
DX: S41.112A Laceration without foreign body of left upper arm, initial encounter (principal); I82.5Z2 Chronic embolism and thrombosis of unspecified deep veins of left distal lower extremity; I82.532 Chronic embolism and thrombosis of left popliteal vein; I24.8 Other forms of acute ischemic heart disease; N17.9 Acute kidney failure, unspecified; E87.2 Acidosis; D62 Acute posthemorrhagic anemia; T14.91XA Suicide attempt, initial encounter; X78.8XXA Intentional self-harm by other sharp object, initial encounter; Z86.711 Personal history of pulmonary embolism; Z95.828 Presence of other vascular implants and grafts; F32.A Depression, unspecified; F41.9 Anxiety disorder, unspecified; Z87.891 Personal history of nicotine dependence; F40.8 Other phobic anxiety disorders; F43.25 Adjustment disorder with mixed disturbance of emotions and conduct; G89.29 Other chronic pain; Z79.01 Long term (current) use of anticoagulants
CPT/HCPCS: 12002; 36415; 36416; 80048; 80053; 80061; 80306; 80307; 81001; 82009; 82550; 82962; 83605; 83735; 83880; 84484; 85025; 85610; 86618; 86666; 86757; 86850; 86900; 87040; 87168; 93005; 93306; 93970; 96365; 96372; 99285; J0690; J1650; J7030